=== PATIENT | female | born 1995 | race Caucasian/White ===

== ENCOUNTER 2016-09-23 18:31 | Emergency (ER) | payer MEDICAID ==
[~2016-09-23] VITALS: Ht 165.1 cm; Wt 55.0 kg
[~2016-09-23 18:31] MED LIST: ETON1VAG CERVICAL
[2016-09-23] MEDS ORDERED: NITROFURANTOIN (MACROBID) 100 MG CAPSULE PO ONE (19:00)
[2016-09-23] MEDS ORDERED: PHENAZOPYRIDINE 200 MG TABLET PO ONE (19:00)
[2016-09-23] MEDS ORDERED: IBUPROFEN 200 MG TABLET PO ONE (19:00)
[2016-09-23] MEDS ORDERED: PHENAZOPYRIDINE 200 MG TABLET ONE (19:09)
[2016-09-23] MEDS ORDERED: IBUPROFEN 200 MG TABLET ONE (19:09)
[2016-09-23 19:17] LABS: ASPARTATE AMINO TRANSFERASE 16 U/L (15-37); BLOOD UREA NITROGEN 12 mg/dL (7-18)
[2016-09-23 20:26] VITALS: BP 109/73
== END 2016-09-23 21:03 | disposition home or self-care (01) ==
LOC: ED 20:45
DX: N30.01 Acute cystitis with hematuria (principal)
CPT/HCPCS: 36415; 74176; 80053; 81001; 84703; 85025; 87086; 99285

== ENCOUNTER 2017-12-16 17:03 | Emergency (ER) | payer MEDICAID, OTHER ==
[~2017-12-16] VITALS: Ht 165.1 cm; Wt 55.7 kg
[2017-12-16 17:09] VITALS: BP 122/78
[2017-12-16] MEDS ORDERED: CEFTRIAXONE 250 MG IM ONE (17:30)
[2017-12-16] MEDS ORDERED: AZITHROMYCIN 500 MG TABLET PO ONE ×3 (17:30→18:00)
[2017-12-16] MEDS ORDERED: CEFTRIAXONE 250 MG ONE (17:52)
[2017-12-16] MEDS ORDERED: AZITHROMYCIN 500 MG TABLET ONE (17:54)
[2017-12-16 17:57] LABS: CLUE CELLS NONE SEEN (NONE SEEN); WET PREP WBCS MANY (FEW)
== END 2017-12-16 18:07 | disposition home or self-care (01) ==
LOC: ED 17:48
DX: A56.11 Chlamydial female pelvic inflammatory disease (principal); A56.09 Other chlamydial infection of lower genitourinary tract; F17.200 Nicotine dependence, unspecified, uncomplicated
CPT/HCPCS: 87210; 87491; 87591; 87808; 96372; 99284; J0696

== ENCOUNTER 2018-02-15 10:01 | Emergency (ER) | payer MEDICAID ==
[~2018-02-15] VITALS: Ht 175.3 cm; Wt 59.7 kg
[2018-02-15] MEDS ORDERED: MORPHINE SULFATE 4 MG/ML, 1ML IVPush PRN (10:30)
[2018-02-15] MEDS ORDERED: SODIUM CHLORIDE FLUSH 10ML SYR IVF ONE (10:30)
[2018-02-15] MEDS ORDERED: ONDANSETRON 2MG/ML, 2ML IVPush ONE (10:30)
[2018-02-15] MEDS ORDERED: SODIUM CHLORIDE 0.9% 1,000ML IVBOLUS ONE (10:30)
[2018-02-15] MEDS ORDERED: ONDANSETRON 2MG/ML, 2ML ONE (10:57)
[2018-02-15] MEDS ORDERED: MORPHINE SULFATE 4 MG/ML, 1ML ONE (10:58)
[2018-02-15 11:06] LABS: MICROSCOPIC AUTO
[2018-02-15 11:07] LABS: CULTURE INDICATED? YES
[2018-02-15 11:13] LABS: INTERNATIONAL NORMALIZED RATIO 1.12 (0.93-1.1); PROTHROMBIN TIME 11.8 Seconds (9.6-11.5)
[2018-02-15 11:16] LABS: ALANINE AMINOTRANSFERASE 18 U/L (12-78); ANION GAP 7 mmol/L (5-15); CALCIUM 8.2 mg/dL (8.5-10.1); CHLORIDE 108 mmol/L (98-107); CREATININE 0.99 mg/dL (0.55-1.02)
[2018-02-15 11:20] LABS: ALKALINE PHOSPHATASE 62 U/L (45-117); BILIRUBIN,TOTAL 0.8 mg/dL (0.2-1.0); TOTAL PROTEIN 6.9 g/dL (6.4-8.2)
[2018-02-15 11:37] LABS: BASOPHILS # (AUTO) 0.03 x10^3/uL (0-0.1); BASOPHILS % (AUTO) 0 % (0-1); EOSINOPHILS # (AUTO) 0.04 x10^3/uL (0-0.4); EOSINOPHILS % (AUTO) 0 % (1-7); LYMPHOCYTES # (AUTO) 1.34 x10^3/uL (1-3.4); LYMPHOCYTES % (AUTO) 14 % (22-44); MD NO; MEAN CORPUSCULAR HEMOGLOBIN 29.5 pg (27.0-34.8); MEAN CORPUSCULAR HGB CONC 33.1 g/dL (32.4-35.8); MEAN CORPUSCULAR VOLUME 88.9 fL (80-100); MEAN PLATELET VOLUME 8.7 fL (7.4-10.4); MONOCYTES # (AUTO) 0.82 x10^3/uL (0.2-0.8); MONOCYTES % (AUTO) 8 % (2-9); NEUTROPHILS # (AUTO) 7.54 x10^3/uL (1.8-6.8); NEUTROPHILS % (AUTO) 77 % (42-75); PLATELET COUNT 278 x10^3/uL (130-400); RED CELL DISTRIBUTION WIDTH 14.9 % (9.6-15.2)
[2018-02-15] MEDS ORDERED: OMNIPAQUE 350 MG/ML, 100ML BOTTLE ONE (11:55)
[2018-02-15] MEDS ORDERED: metroNIDAZOLE 500 MG TABLET ONE (12:51)
[2018-02-15] MEDS ORDERED: CEFTRIAXONE 250 MG ONE (12:51)
[2018-02-15] MEDS ORDERED: LIDOCAINE-MPF 1%, 2ML ONE (12:53)
[2018-02-15] MEDS ORDERED: CEFTRIAXONE 1,000 MG IM ONE (13:00)
[2018-02-15] MEDS ORDERED: metroNIDAZOLE 500 MG TABLET PO ONE (13:00)
[2018-02-15 13:22] VITALS: BP 115/64
== END 2018-02-15 13:24 | disposition home or self-care (01) ==
LOC: ED 12:12
DX: N73.3 Female acute pelvic peritonitis (principal); F17.200 Nicotine dependence, unspecified, uncomplicated
CPT/HCPCS: 36415; 74177; 80053; 81001; 83605; 83690; 84703; 85025; 85610; 87077; 87086; 87186; 96372; 96374; 96375; 99284; J0696; J2405; J7030; Q9967

== ENCOUNTER 2018-04-26 16:14 | Emergency (ER) | payer MEDICAID ==
[~2018-04-26] VITALS: Ht 165.1 cm; Wt 61.9 kg
[2018-04-26] MEDS ORDERED: AZITHROMYCIN 250 MG TABLET PO ONE (16:30)
[2018-04-26] MEDS ORDERED: CEFTRIAXONE 250 MG IM ONE (16:30)
[2018-04-26] MEDS ORDERED: AZITHROMYCIN 250 MG TABLET ONE (17:08)
[2018-04-26] MEDS ORDERED: CEFTRIAXONE 1,000 MG ONE (17:08)
[2018-04-26] MEDS ORDERED: CEFTRIAXONE 250 MG ONE (17:14)
--- NOTE | 2018-04-26 17:40 | NUR ---
pelvic exam in progress, pt awake & calm, responds approp to staff, NAD, comfort measures provided, BF at BS, call light within reach. Addendum: 04/26/18 at 1745 by JET BREAK RN: pelvic exam in progress, pt awake & calm, responds approp to staff, NAD, comfort measures provided, BF at BS, call light within reach.
[2018-04-26 17:48] LABS: CULTURE INDICATED? YES; MICROSCOPIC INDICATED
[2018-04-26 17:52] LABS: BASOPHILS # (AUTO) 0.04 x10^3/uL (0-0.1); BASOPHILS % (AUTO) 1 % (0-1); EOSINOPHILS # (AUTO) 0.09 x10^3/uL (0-0.4); EOSINOPHILS % (AUTO) 1 % (1-7); LYMPHOCYTES # (AUTO) 2.33 x10^3/uL (1-3.4); LYMPHOCYTES % (AUTO) 34 % (22-44); MD NO; MEAN CORPUSCULAR HEMOGLOBIN 29.4 pg (27.0-34.8); MEAN CORPUSCULAR HGB CONC 33.3 g/dL (32.4-35.8); MEAN CORPUSCULAR VOLUME 88.5 fL (80-100); MEAN PLATELET VOLUME 8.4 fL (7.4-10.4); MONOCYTES # (AUTO) 0.74 x10^3/uL (0.2-0.8); MONOCYTES % (AUTO) 11 % (2-9); NEUTROPHILS # (AUTO) 3.72 x10^3/uL (1.8-6.8); NEUTROPHILS % (AUTO) 54 % (42-75); PLATELET COUNT 248 x10^3/uL (130-400); RED BLOOD COUNT 4.84 x10^6/uL (3.82-5.3); RED CELL DISTRIBUTION WIDTH 14.5 % (9.6-15.2)
[2018-04-26 17:58] LABS: ALANINE AMINOTRANSFERASE 17 U/L (12-78); ALBUMIN 3.3 g/dL (3.4-5.0); ANION GAP 6 mmol/L (5-15); CALCIUM 8.8 mg/dL (8.5-10.1); CHLORIDE 108 mmol/L (98-107); CREATININE 1.11 mg/dL (0.55-1.02)
[2018-04-26 18:00] LABS: ALKALINE PHOSPHATASE 60 U/L (45-117); BILIRUBIN,TOTAL 0.5 mg/dL (0.2-1.0); TOTAL PROTEIN 7.2 g/dL (6.4-8.2)
[2018-04-26 18:46] LABS: CLUE CELLS NONE SEEN (NONE SEEN); WET PREP WBCS MODERATE (FEW)
[2018-04-26 19:11] VITALS: BP 97/60
--- NOTE | 2018-04-26 19:15 | NUR ---
Patient/Caregiver given discharge instructions and they have confirmed that they understand the instructions. Patient ambulatory with steady gait.
== END 2018-04-26 19:16 | disposition home or self-care (01) ==
LOC: ED 17:36
DX: A54.9 Gonococcal infection, unspecified (principal); N89.8 Other specified noninflammatory disorders of vagina
CPT/HCPCS: 36415; 80053; 81001; 84703; 85025; 87086; 87210; 87491; 87591; 87808; 96372; 99283; J0696

== ENCOUNTER 2018-11-06 15:39 | Emergency (ER) | payer MEDICAID ==
[~2018-11-06] VITALS: Ht 165.1 cm; Wt 57.0 kg
[2018-11-06 15:43] VITALS: BP 120/81
== END 2018-11-06 18:01 | disposition home or self-care (01) ==
LOC: ED 17:53
DX: A74.9 Chlamydial infection, unspecified (principal); A54.9 Gonococcal infection, unspecified; R10.30 Lower abdominal pain, unspecified; F17.200 Nicotine dependence, unspecified, uncomplicated; Z72.9 Problem related to lifestyle, unspecified
CPT/HCPCS: 81001; 81025; 87077; 87086; 87210; 87491; 87591; 87808; 96372; 99283; J0696; 87186

== ENCOUNTER 2019-09-24 06:08 | Emergency (ER) | payer SELFPAY ==
[~2019-09-24] VITALS: Ht 165.1 cm; Wt 59.6 kg
[2019-09-24] MEDS ORDERED: DEXAMETHASONE 4 MG/ML, 5ML ONE (06:39)
[2019-09-24] MEDS ORDERED: HYDROcodone/APAP 7.5-325MG/15ML UDC ONE (06:39)
--- NOTE | 2019-09-24 06:51 | NUR ---
REPORT GIVEN TO CHEL GOLDBERG.
--- NOTE | 2019-09-24 06:52 | NUR ---
report received from dionne fletcher.
[2019-09-24] MEDS ORDERED: HYDROcodone/APAP 7.5-325MG/15ML UDC PO ONE (07:00)
[2019-09-24] MEDS ORDERED: DEXAMETHASONE 4 MG TABLET PO ONE (07:00)
[2019-09-24 07:59] VITALS: BP 110/74
--- NOTE | 2019-09-24 08:03 | NUR ---
Patient given discharge instructions and they have confirmed that they understand the instructions. Patient ambulatory with steady gait.
== END 2019-09-24 08:04 | disposition home or self-care (01) ==
LOC: ED 06:38
DX: J03.00 Acute streptococcal tonsillitis, unspecified (principal); F17.200 Nicotine dependence, unspecified, uncomplicated
CPT/HCPCS: 87880; 99283